=== PATIENT | female | born 1945 | race Caucasian/White ===

== ENCOUNTER 2018-11-05 22:45 | Emergency (ER) | payer OTHER ==
[~2018-11-05] VITALS: Ht 167.6 cm; Wt 68.9 kg
--- NOTE | 2018-11-05 23:05 | NUR ---
PT. TO ROOM
--- NOTE | 2018-11-05 23:17 | NUR ---
PT. TO ED WITH C/O NECK PAIN/STIFFNESS SINCE YESTERDAY. REPORTS SAME THING HAPPENED 2 WEEKS AGO AND GOT BETTER UNTIL YESTERDAY. PT. STATES "I THINK IT'S JUST MUSCLE SPASMS." PT. DENIES ANY WEAKNESS OR INCONTINENCE. DENIES INJURY. WARM BLANKETS PROVIDED AND CALL LIGHT IN REACH. DR. GUZMAN AT NOW.
[2018-11-05] MEDS ORDERED: METHOCARBAMOL 750 MG TABLET ONE (23:21)
[2018-11-05] MEDS ORDERED: HYDROcodone/APAP 5/325 TABLET ONE (23:22)
--- NOTE | 2018-11-05 23:26 | NUR ---
PT. MEDICATED PER NOV FOR 10 NECK PAIN. PT. AWAIT[address] CT. UPDATED ON POC. FAMILY AT FOR SUPPORT. CALL LIGHT IN REACH.
[2018-11-05] MEDS ORDERED: METHOCARBAMOL 750 MG TABLET PO ONE (23:30)
[2018-11-05] MEDS ORDERED: HYDROcodone/APAP 5/325 TABLET PO ONE (23:30)
[2018-11-06 00:12] VITALS: BP 152/75
--- NOTE | 2018-11-06 00:12 | NUR ---
PT. REPORTS FEELING BETTER NOW AFTER PAIN MEDS. STATES PAIN IS DOWN TO 6/10. AWAITING CT RESULTS AT THIS TIME.
== END 2018-11-06 00:49 | disposition home or self-care (01) ==
LOC: ED 23:59
DX: G24.3 Spasmodic torticollis (principal)
CPT/HCPCS: 72125; 99284

== ENCOUNTER 2020-11-08 13:01 | Emergency (ER) | payer OTHER ==
[~2020-11-08] VITALS: Ht 165.1 cm; Wt 72.8 kg
--- NOTE | 2020-11-08 13:03 | NUR ---
CALLED FOR PT. PT NOT IN LOBBY
[2020-11-08] MEDS ORDERED: ASPIRIN 81 MG TABLET CHEW ONE (13:29)
[2020-11-08] MEDS ORDERED: ASPIRIN 81 MG TABLET CHEW PO ONE (13:30)
[2020-11-08 13:35] LABS: BASOPHILS % (AUTO) 1 % (0-1); EOSINOPHILS % (AUTO) 2 % (1-7); LYMPHOCYTES % (AUTO) 28 % (22-44); MEAN CORPUSCULAR HEMOGLOBIN 32.9 pg (27.0-34.8); MEAN CORPUSCULAR HGB CONC 33.8 g/dL (32.4-35.8); MEAN PLATELET VOLUME 7.7 fL (7.4-10.4); MONOCYTES % (AUTO) 10 % (2-9); NEUTROPHILS % (AUTO) 60 % (42-75); PLATELET COUNT 309 x10^3/uL (130-400); RED BLOOD COUNT 4.33 x10^6/uL (3.82-5.3); RED CELL DISTRIBUTION WIDTH 13.4 % (9.6-15.2)
[2020-11-08 13:36] LABS: MD NO
[2020-11-08 13:45] LABS: ALBUMIN 4.4 g/dL (3.4-5.0); ANION GAP 7 mmol/L (5-15); CALCIUM 9.9 mg/dL (8.5-10.1); CHLORIDE 108 mmol/L (98-107); CREATININE 0.79 mg/dL (0.55-1.02)
--- NOTE | 2020-11-08 13:45 | NUR ---
flight control specialist completed. Attempted to give ASA 162mg as ordered, but pt states she took 2 baby ASA at approximately 1230 today. MD notified and cancelled order at this time. Pt states she feels unsteady as she walks right now because of dizziness but has equal strength in both legs with normal tone.
[2020-11-08 13:49] LABS: TROPONIN I < 0.015 ng/mL (0.000-0.045)
--- NOTE | 2020-11-08 14:00 | NUR ---
Spouse of pt overheard shouting in hallway for assistance to the bathroom and that they've been waiting for help for over 30 minutes.
--- NOTE | 2020-11-08 14:10 | NUR ---
Pt states she was able to get to the restroom without issue, placed back on monitor, and reassessment completed without acute changes noted. Spouse states call light was in reach and used, but she couldn't wait so long. Apologies for the wait made and pt and spouse state they understand and have no further concerns. Updated to waiting on results of testing and for MD to then review those and come speak with them about findings and suggested plan of care.
--- NOTE | 2020-11-08 14:20 | NUR ---
Noted MD at bedside and new order for DDimer present.
[2020-11-08 15:03] VITALS: BP 157/72
== END 2020-11-08 15:05 | disposition home or self-care (01) ==
LOC: ED 14:55
DX: R42 Dizziness and giddiness (principal); I10 Essential (primary) hypertension; R51.9 Headache, unspecified; R07.9 Chest pain, unspecified; R00.0 Tachycardia, unspecified
CPT/HCPCS: 36415; 71045; 80048; 82040; 83880; 84484; 85025; 85379; 93005; 99283